=== PATIENT | male | born 1990 | race Caucasian/White ===

== ENCOUNTER 2020-02-18 10:42 | Emergency (ER) | payer SELFPAY ==
[~2020-02-18] VITALS: Ht 172.7 cm; Wt 95.0 kg
[2020-02-18] MEDS ORDERED: IV NORMAL SALINE 1000ML BAG 1,000 ML IV ONE (11:00)
[2020-02-18] MEDS ORDERED: diphenhydrAMINE 50 MG/ML VIAL IVP ONE (11:30)
[2020-02-18] MEDS ORDERED: methylPREDNISolone SOD SUCC PF 125 MG/2 ML VIAL. IV ONE (11:30)
[2020-02-18] MEDS ORDERED: FAMOTIDINE 20 MG/2 ML VIAL IVP ONE (11:30)
--- NOTE | 2020-02-18 11:48 | EKG ---
[facility] [address] [place] [address] Test Date: 2020-02-18 Test Time: 10:47:04 Pat Name: MYLES LARKIN Department: Room: Gender: M Lead Technical Writer: : 1990 Requested By: KATIE VASQUEZ Order Number: [id number] Reading MD: Measurements Intervals [place] Rate: 74 P: 67 CT: 130 QRS: 47 QRSD: 96 T: 19 QT: 364 QTc: 404 Interpretive Statements SINUS ARRHYTHMIA OTHERWISE NORMAL ECG RI6.01 No previous ECG available for comparison
[2020-02-18 12:18] LABS: BASO % 0 % (0-3); EOS # 0.1 x10^3/uL (0.0-0.7); EOS % 1 % (0-3); HEMATOCRIT 46.2 % (39.0-53.0); HEMOGLOBIN 15.8 g/dL (13.0-17.5); LYMPH # 1.5 x10^3/uL (1.0-4.8); LYMPH % 11 % (24-48); MEAN CORPUSCULAR HEMOGLOBIN 29 pg (25-35); MEAN CORPUSCULAR HGB CONC 34 g/dL (31-37); MEAN CORPUSCULAR VOLUME 86 fL (79-100); MONO # 0.8 x10^3/uL (0.0-1.1); MONO % 6 % (0-9); NEUT # 10.8 x10^3/uL (1.8-7.7); NEUT % 82 % (31-73); PLATELET COUNT 260 x10^3/uL (140-400); RED BLOOD COUNT 5.37 x10^6/uL (4.30-5.70); RED CELL DISTRIBUTION WIDTH 13.2 % (11.5-14.5); WHITE BLOOD COUNT 13.2 x10^3/uL (4.0-11.0)
--- NOTE | 2020-02-18 12:24 | RAD ---
PQRS Compliance Statement: One or more of the following individualized dose reduction techniques were utilized for this examination: 1. Automated exposure control 2. Adjustment of the mA and/or kV according to patient size 3. Use of iterative reconstruction technique CT HEAD AND CERVICAL SPINE WITHOUT CONTRAST History: Reason: SYNCOPE, HIT HEAD, HEADACHE, NECK PAIN / Comparison: None. Procedure: Axial images are obtained of the head from the skull base through the vertex without IV contrast. Noncontrast helical CT of the cervical spine was performed. Axial, sagittal, and coronal reconstructions were obtained. Findings: The ventricles and sulci are normal for the patient's age. No mass-effect, midline shift, hemorrhage or obvious acute infarction is identified. Basilar cisterns are patent. Bone windows demonstrate no significant calvarial abnormality. The visualized paranasal sinuses are clear. Mastoid air cells are well aerated. There is no evidence of acute fracture or acute malalignment of the cervical spine. No significant disc space narrowing. No perched or jumped facet joints are seen. The vertebral body height and alignment are maintained. Visualized soft tissues of the neck demonstrate no significant abnormalities. The visualized lung apices are clear. IMPRESSION: 1. No acute intracranial abnormality. 2. No acute fracture of the cervical spine. Electronically signed by: Vance Peguero MD (02/18/2020 12:22 PM) [id number]
[2020-02-18 12:29] LABS: CALCIUM 8.5 mg/dL (8.5-10.1); CREATININE 1.2 mg/dL (0.7-1.3); GFR 71.1; POTASSIUM 4.4 mmol/L (3.5-5.1)
[2020-02-18 12:35] LABS: ALBUMIN 3.7 g/dL (3.4-5.0); ALBUMIN/GLOBULIN RATIO 1.2 (1.0-1.7); MAGNESIUM 1.7 mg/dL (1.8-2.4); TOTAL BILIRUBIN 0.4 mg/dL (0.2-1.0); TOTAL PROTEIN 6.9 g/dL (6.4-8.2)
--- NOTE | 2020-02-18 13:02 | PHYS DOC ---
Past Medical History Past Medical History: No Pertinent History Past Surgical History: No Surgical History Smoking Status: Former Smoker Alcohol Use: None Additional Information: pt stopped ETOH 3 weeks ago, pt drinking 2-3 times per week. General Adult EDM: Chief Complaint: SYNCOPE HPI: HPI: Patient is a 30 year old male who was brought here by EMS after he passed out in the toilet at work. Patient has been taking amoxicillin for about 3 days for dental infection. Patient said he has some rash on his belly last night and he took some Benadryl. Patient was on his way to work this morning, he was walking from the parking lot into his office when he was feeling dizzy so he stopped by the toilet, patient said that when he started to use the bathroom become dizzy and passed out. Patient hit his head on the ground, EMS were called, they said patient was sweaty, had hives all over his body, his blood pressure was low. EMS started an IV and gave him 500 cc of normal saline then brought him here for evaluation. Patient denies any abdominal pain, no chest pain, no trouble breathing, no nausea or vomiting. Patient denies any neck pain. Patient complains of headache on the right side where he hit his head. Review of Systems: Review of Systems: Constitutional: Denies fever or chills. [] Eyes: Denies change in visual acuity. [] HENT: Denies nasal congestion or sore throat. [] Respiratory: Denies cough or shortness of breath. [] Cardiovascular: Denies chest pain or edema. [] GI: Denies abdominal pain, nausea, vomiting, bloody stools or diarrhea. [] : Denies dysuria. [] Musculoskeletal: Denies back pain or joint pain. [] Integument: Positive for rash Neurologic: Positive for headache, no focal weakness or sensory changes. [] Endocrine: Denies polyuria or polydipsia. [] Lymphatic: Denies swollen glands. [] Psychiatric: Denies depression or anxiety. [] Heart Score: Risk Factors: Risk Factors: DM, Current or recent (<one month) smoker, HTN, HLP, family history of CAD, obesity. Risk Scores: Score 0 - 3: 2.5% MACE over next 6 weeks - Discharge Home Score 4 - 6: 20.3% MACE over next 6 weeks - Admit for Clinical Observation Score 7 - 10: 72.7% MACE over next 6 weeks - Early Invasive Strategies Current Medications: Current Medications Medications (Trade) Dose Ordered Sig/Shruti Start Time Stop Time Status Last Admin Dose Admin Diphenhydramine HCl (Benadryl) 50 mg 1X ONCE 02/18/20 11:30 02/18/20 11:31 DC 02/18/20 11:28 50 MG Famotidine (Pepcid Vial) 20 mg 1X ONCE 02/18/20 11:30 02/18/20 11:31 DC 02/18/20 11:26 20 MG Methylprednisolone Sodium Succinate (SOLU-Medrol 125MG VIAL) 125 mg 1X ONCE 02/18/20 11:30 02/18/20 11:31 DC 02/18/20 11:28 125 MG Sodium Chloride 1,000 ml @ 0 mls/hr 1X ONCE 02/18/20 11:00 02/18/20 11:01 DC 02/18/20 11:02 1,000 MLS/HR Allergies: Allergies: Allergies Coded Allergies Type Severity Reaction Last Updated Verified No Known Drug Allergies 02/18/20 No Physical Exam: PE: Constitutional: Well developed, well nourished, no acute distress, non-toxic appearance. [] HENT: Normocephalic, right side temporal area with skin contusion and bruise, bilateral external ears normal, oropharynx moist, no oral exudates, nose normal. [] Eyes: PERRLA, EOMI, conjunctiva normal, no discharge. [] Neck: Normal range of motion, no tenderness, supple, no stridor. [] Cardiovascular:Heart rate regular rhythm, no murmur [] Lungs & Thorax: Bilateral breath sounds clear to auscultation [] Abdomen: Bowel sounds normal, soft, no tenderness, no masses, no pulsatile masses. [] Skin: Warm, Maculopapular rash consistent with urticaria on chest, abdomen, neck area Back: No tenderness, no CVA tenderness. [] Extremities: No tenderness, no cyanosis, no clubbing, ROM intact, no edema. [] Neurologic: Alert and oriented X 3, normal motor function, normal sensory function, no focal deficits noted. [] Psychologic: Affect normal, judgement normal, mood normal. [] Current Patient Data: Labs: Laboratory Tests Test 8/11/20 12:05 White Blood Count 13.2 x10^3/uL (4.0-11.0) H Red Blood Count 5.37 x10^6/uL (4.30-5.70) Hemoglobin 15.8 g/dL (13.0-17.5) Hematocrit 46.2 % (39.0-53.0) Mean Corpuscular Volume 86 fL (79-100) Mean Corpuscular Hemoglobin 29 pg (25-35) Mean Corpuscular Hemoglobin Concent 34 g/dL (31-37) Red Cell Distribution Width 13.2 % (11.5-14.5) Platelet Count 260 x10^3/uL (140-400) Neutrophils (%) (Auto) 82 % (31-73) H Lymphocytes (%) (Auto) 11 % (24-48) L Monocytes (%) (Auto) 6 % (0-9) Eosinophils (%) (Auto) 1 % (0-3) Basophils (%) (Auto) 0 % (0-3) Neutrophils # (Auto) 10.8 x10^3/uL (1.8-7.7) H Lymphocytes # (Auto) 1.5 x10^3/uL (1.0-4.8) Monocytes # (Auto) 0.8 x10^3/uL (0.0-1.1) Eosinophils # (Auto) 0.1 x10^3/uL (0.0-0.7) Basophils # (Auto) 0.0 x10^3/uL (0.0-0.2) Sodium Level 138 mmol/L (136-145) Potassium Level 4.4 mmol/L (3.5-5.1) Chloride Level 104 mmol/L (98-107) Carbon Dioxide Level 25 mmol/L (21-32) Anion Gap 9 (6-14) Blood Urea Nitrogen 20 mg/dL (8-26) Creatinine 1.2 mg/dL (0.7-1.3) Estimated GFR (Cockcroft-Gault) 71.1 BUN/Creatinine Ratio 17 (6-20) Glucose Level 82 mg/dL (70-99) Calcium Level 8.5 mg/dL (8.5-10.1) Magnesium Level 1.7 mg/dL (1.8-2.4) L Total Bilirubin 0.4 mg/dL (0.2-1.0) Aspartate Amino Transferase (AST) 18 U/L (15-37) Alanine Aminotransferase (ALT) 44 U/L (16-63) Alkaline Phosphatase 63 U/L (46-116) Troponin I Quantitative 0.133 ng/mL (0.000-0.055) Total Protein 6.9 g/dL (6.4-8.2) Albumin 3.7 g/dL (3.4-5.0) Albumin/Globulin Ratio 1.2 (1.0-1.7) Laboratory Tests 02/18/20 12:05 Laboratory Tests 02/18/20 12:05 Vital Signs: Vital Signs Date Time Temp Pulse Resp B/P (MAP) Pulse Ox O2 Delivery O2 Flow Rate FiO2 02/18/20 12:11 76 132/92 (105) 99 Room Air 02/18/20 10:42 97.5 20 97.5 EKG: EKG: Interpreted by emergency department physician Rhythm: Sinus rhythm Rate: 74 Ectopy: No ectopy Conduction: Normal ST Segments: No ST segment elevation T Waves: Hyperacute T wave Q Waves: No Q wave Clinical Impression: Normal sinus rhythm Radiology/Procedures: Radiology/Procedures: [][facility] [address] [place] [address] IMAGING REPORT Signed PATIENT: MYLES LARKIN ACCOUNT: [id number] : 1990 LOCATION: ER AGE: 30 SEX: M EXAM STATUS: REG ER ORD. PHYSICIAN: KATIE VASQUEZ DO REASON: SYNCOPE, HIT HEAD, HEADACHE, NECK PAIN PROCEDURE: CT HEAD AND CERVICAL SPINE WO PQRS Compliance Statement: One or more of the following individualized dose reduction techniques were utilized for this examination: 1. Automated exposure control 2. Adjustment of the mA and/or kV according to patient size 3. Use of iterative reconstruction technique CT HEAD AND CERVICAL SPINE WITHOUT CONTRAST History: Reason: SYNCOPE, HIT HEAD, HEADACHE, NECK PAIN / Comparison: None. Procedure: Axial images are obtained of the head from the skull base through the vertex without IV contrast. Noncontrast helical CT of the cervical spine was performed. Axial, sagittal, and coronal reconstructions were obtained. Findings: The ventricles and sulci are normal for the patient's age. No mass-effect, midline shift, hemorrhage or obvious acute infarction is identified. Basilar cisterns are patent. Bone windows demonstrate no significant calvarial abnormality. The visualized paranasal sinuses are clear. Mastoid air cells are well aerated. There is no evidence of acute fracture or acute malalignment of the cervical spine. No significant disc space narrowing. No perched or jumped facet joints are seen. The vertebral body height and alignment are maintained. Visualized soft tissues of the neck demonstrate no significant abnormalities. The visualized lung apices are clear. IMPRESSION: 1. No acute intracranial abnormality. 2. No acute fracture of the cervical spine. Electronically signed by: Vance Peguero MD (02/18/2020 12:22 PM) [id number] DICTATED and SIGNED BY: VANCE PEGUERO MD DATE: 02/18/201221 Course & Med Decision Making: Course & Med Decision Making Pertinent Labs and Imaging studies reviewed. (See chart for details) Patient is a 30-year-old male who was evaluated in ER due to an anaphylactic reaction to amoxicillin he has been taking for dental infection. Patient was given IV fluids, IV Solu-Medrol and IV Benadryl with patches. Patient FELT 100% better. Patient troponin level however elevated. Patient denies any chest pain. Patient denies any trouble breathing. This physician recommend that patient is to be admitted for observation however patient did not want to stay in the hospital. Patient said he few 100% better now he want to go home. Patient denies any chest pain or any trouble breathing at this time, he denies any risk factor for having heart disease. Patient will sign out AGAINST MEDICAL ADVICE. Patient was advised to stop taking amoxicillin today, he will need to call his doctor to have a different antibiotic for his dental infection. Patient will be given prescription for Benadryl, Pepcid, Benadryl. Patient was told that he will come back here for evaluation if he still having chest pain or passing out again. Steven Disclaimer: Steven Disclaimer: This electronic medical record was generated, in whole or in part, using a voice recognition dictation system. Departure Departure Impression: Primary Impression: Anaphylactic reaction Additional Impression: Syncope and collapse Disposition: 07 AGAINST MEDICAL ADVICE Condition: IMPROVED Referrals: NO PCP (PCP) follow up with your doctor in AM, RETURN TO THE ER [facility] if you have chest pain... Patient Instructions: Anaphylactic Reaction, Discharge Against Medical Advice Additional Instructions: stop taking AMOXICILLIN NOW. Patient does not wish to proceed with medical care recommended by Dr. Vasquez. Patient given information related to possible complications, up to and including , which could occur as a result of leaving the hospital at this time. Patient verbalizes understanding of risks involved due to leaving against medical advice. Patient has singned AMA form. Scripts Diphenhydramine Hcl (BENADRYL) 25 Mg Capsule 25 MG PO QID PRN for RASH, #30 CAP Prov: KATIE VASQUEZ DO 02/18/20 Famotidine (PEPCID) 20 Mg Tablet 20 MG PO HS for 5 Days, #5 TAB Prov: KATIE VASQUEZ DO 02/18/20 Prednisone (PREDNISONE) 20 Mg Tablet 2 TAB PO DAILY for 5 Days, #10 TAB Prov: KATIE VASQUEZ DO 02/18/20 Justicifation of Admission Dx: Justifications for Admission: Justification of Admission Dx: N/A KATIE VASQUEZ DO Feb 18, 2020 13:02
[2020-02-18 13:41] VITALS: BP 134/76
[2020-02-18] MEDS ORDERED: FAMO-63 PO (13:48)
[2020-02-18] MEDS ORDERED: PRED20TA PO (13:48)
[2020-02-18] MEDS ORDERED: DIPH25CA58 PO (13:48)
== END 2020-02-18 13:58 | disposition left against medical advice (07) ==
LOC: ER 10:42
DX: T88.6XXA Anaphylactic reaction due to adverse effect of correct drug or medicament properly administered, initial encounter (principal); T36.0X5A Adverse effect of penicillins, initial encounter; R55 Syncope and collapse; Z87.891 Personal history of nicotine dependence; Y92.89 Other specified places as the place of occurrence of the external cause
CPT/HCPCS: 36415; 70450; 72125; 80053; 83735; 84484; 85025; 93005; 96374; 96375; 99285; J1200; J2930; J3490; J7030